=== PATIENT | female | born 1990 | race Caucasian/White ===

== ENCOUNTER 2017-02-06 11:10 | Emergency (ER) | payer MEDICAID ==
[2017-02-06 11:28] VITALS: BP 128/92
--- NOTE | 2017-02-06 11:59 | EDM.PDOC ---
ED HPI GENERAL MEDICAL PROBLEM - General Chief Complaint: Abdominal Pain Stated Complaint: STOMACH PAIN Time Seen by Provider: 02/06/17 11:45 Source of Information: Reports: Patient History Limitations: Reports: No Limitations - History of Present Illness INITIAL COMMENTS - FREE TEXT/NARRATIVE: 26-year-old female has some generalized abdominal discomfort over the past several days, passed a vaginal blood clot yesterday and went to the clinic wondering if she was having a miscarriage. The beta hCG was drawn and sent but not available yet. Today she developed a small amount of increased pain so went back into the clinic for follow-up and they sent her to the emergency room. She has no fever or chills, some nausea but no vomiting, no diarrhea. No back pain but had one episode of dysuria this morning. Onset: Unknown/Unsure Severity: Mild Associated Symptoms: Reports: Headaches, Shortness of Breath (Intermittent shortness of breath with activity). 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: Musculoskeletal History: Reports: Fracture Neurological History: Reports: Headaches, Chronic, Migraines Psychiatric History: Reports: Anxiety, Depression Dermatologic History: Reports: Eczema - Infectious Disease History Infectious Disease History: Reports: Chicken Pox - Past Surgical History Female Surgical History: Reports: Section Social & Family History - Tobacco Use Smoking Status *Q: Current Every Day Smoker Years of Tobacco use: 12 Packs/Tins Daily: 0.5 Used Tobacco, but Quit: Yes Month Tobacco Last Used: may Second Hand Smoke Exposure: No - Caffeine Use Caffeine Use: Reports: Coffee, Soda - Alcohol Use Days Per Week of Alcohol Use: 0 - Recreational Drug Use Recreational Drug Use: Yes Recreational Drug Type: Reports: Marijuana/Hashish Recreational Drug Use Frequency: Weekly ED ROS GENERAL - Review of Systems Review Of Systems: See Below Constitutional: Denies: Fever, Chills, Malaise HEENT: Reports: No Symptoms Respiratory: Reports: Shortness of Breath (With activity, intermittent and inconsistent) Cardiovascular: Denies: Chest Pain GI/Abdominal: Reports: Abdominal Pain, Nausea. Denies: Constipation, Diarrhea, Vomiting : Reports: Dysuria (One episode of dysuria this morning, no increased frequency) Skin: Reports: No Symptoms Neurological: Reports: Headache ED EXAM, GENERAL - Physical Exam Exam: See Below Exam Limited By: No Limitations General Appearance: Alert, No Apparent Distress Eye Exam: Bilateral Eye: Normal Inspection Throat/Mouth: Normal Inspection Respiratory/Chest: No Respiratory Distress, Lungs Clear Cardiovascular: Regular Rate, Rhythm GI/Abdominal: Abnormal Bowel Sounds (All sounds do seem somewhat hypoactive), Other (She reacts with some tenderness to palpation over the entire abdomen, no focal guarding or rebound is present. She can stand up without discomfort and heel strike the floor without any complaints.) Extremities: Other (Exam of the lower extremity on the left shows well-healed surgical scars, and no significant swelling around the left knee. The left ankle has no edema, deformity or abrasion. Any mild palpation around the left knee and left ankle causes her to almost scream in pain way out of proportion to the injury seen.) Course - Vital Signs Last Recorded V/S: Last Vital Signs Temp 98.1 F 02/06/17 11:26 Pulse 84 02/06/17 11:26 Resp 16 02/06/17 11:26 BP 128/92 H 02/06/17 11:26 Pulse Ox 97 02/06/17 11:26 - Orders/Labs/Meds Labs: Laboratory Tests 02/06/17 02/06/17 02/06/17 Range/Units 11:45 11:45 12:09 WBC 6.0 (4.5-11.0) K/uL RBC 4.44 (3.30-5.50) M/uL Hgb 13.4 (12.0-15.0) g/dL Hct 40.2 (36.0-48.0) % MCV 91 (80-98) fL MCH 30 (27-31) pg MCHC 33 (32-36) % Plt Count 183 (150-400) K/uL Neut % (Auto) 57 (36-66) % Lymph % (Auto) 32 (24-44) % [place] % (Auto) 10 H (2-6) % Eos % (Auto) 1 L (2-4) % Baso % (Auto) 1 (0-1) % Sodium 142 (140-148) mmol/L Potassium 3.2 L (3.6-5.2) mmol/L Chloride 107 (100-108) mmol/L Carbon Dioxide 25 (21-32) mmol/L Anion Gap 13.2 (5.0-14.0) mmol/L BUN 13 (7-18) mg/dL Creatinine 0.9 (0.6-1.0) mg/dL Est Cr Clr Drug Dosing 86.73 mL/min Estimated GFR (MDRD) > 60 (>60) Glucose 72 L (74-106) mg/dL Calcium 9.2 (8.5-10.1) mg/dL Total Bilirubin 0.5 (0.2-1.0) mg/dL AST 15 (15-37) U/L ALT 21 (12-78) U/L Alkaline Phosphatase 60 (46-116) U/L Total Protein 7.3 (6.4-8.2) g/dL Albumin 4.0 (3.4-5.0) g/dL Globulin 3.3 (2.3-3.5) g/dL Albumin/Globulin Ratio 1.2 (1.2-2.2) HCG, Quant 0 (0-6) mIU/mL Urine Color Yellow Urine Appearance Slightly cloudy Urine pH 5.0 (4.5-8.0) Ur Specific [place] 1.015 (1.008-1.030) Urine Protein Trace (NEGATIVE) mg/dL Urine Glucose (UA) Normal (NEGATIVE) mg/dL Urine Ketones Negative (NEGATIVE) mg/dL Urine Occult Blood Large (NEGATIVE) Urine Nitrite Negative (NEGATIVE) Urine Bilirubin Negative (NEGATIVE) Urine Urobilinogen Normal (NORMAL) mg/dL Ur Leukocyte Esterase Negative (NEGATIVE) Urine RBC 5-10 H (0-5) Urine WBC 0-5 (0-5) Ur Epithelial Cells Few Amorphous Sediment Not seen Urine Bacteria Few Urine Mucus Few - Re-Assessments/Exams Free Text/Narrative Re-Assessment/Exam: 02/06/17 12:09 A UA, CBC, CMP and a repeat beta hCG quantitative is drawn. No treatment pending labs as the patient looks comfortable. 02/06/17 12:28 Potassium was 3.2, mildly low but all other labs were reassuring. White count and hemoglobin were normal, kidney function excellent, urine basically clear. Her hCG level was 0. These were all discussed with the patient who again looked perfectly comfortable and displaying no symptoms. I encouraged her to rest, get fluids, and return if worsening such as fever or increased pain or vomiting. Departure - Departure Time of Disposition: 12:54 Disposition: Home, Self-Care 01 Condition: Good Clinical Impression: Abdominal pain Qualifiers: Abdominal location: generalized Qualified Code(s): R10.84 - Generalized abdominal pain - Discharge Information Instructions: Abdominal Pain, Adult, [id number] Referrals: Marie Tejeda CNM [Primary Care Provider] - Forms: ED Department Discharge Care Plan Goals: Rest, fluids, and resume normal activity as tolerated. Return anytime if worsening such as fever or increased pain.
== END 2017-02-06 12:55 | disposition home or self-care (01) ==
LOC: JP.ED 11:10
DX: R10.84 Generalized abdominal pain (principal); F17.210 Nicotine dependence, cigarettes, uncomplicated
CPT/HCPCS: 36415; 80053; 81001; 84702; 85025; 99284

== ENCOUNTER 2017-04-20 11:40 | Emergency (ER) | payer MEDICAID ==
[2017-04-20 12:01] VITALS: BP 125/71
[2017-04-20] MEDS ORDERED: Acetaminophen 325 MG Tab PO ONE (12:24)
--- NOTE | 2017-04-20 13:09 | EDM.PDOC ---
ED HPI GENERAL MEDICAL PROBLEM - General Chief Complaint: ENT Problem Stated Complaint: SORE THROAT/STREP?? 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: Musculoskeletal History: Reports: Fracture Neurological History: Reports: Headaches, Chronic, Migraines Psychiatric History: Reports: Anxiety, Depression Dermatologic History: Reports: Eczema - Infectious Disease History Infectious Disease History: Reports: Chicken Pox - Past Surgical History Female Surgical History: Reports: Section Social & Family History - Tobacco Use Smoking Status *Q: Current Every Day Smoker Years of Tobacco use: 15 Packs/Tins Daily: 0.2 Used Tobacco, but Quit: Yes Month Tobacco Last Used: may Second Hand Smoke Exposure: No - Caffeine Use Caffeine Use: Reports: Coffee, Soda - Alcohol Use Days Per Week of Alcohol Use: 0 - Recreational Drug Use Recreational Drug Use: Yes Recreational Drug Type: Reports: Marijuana/Hashish Recreational Drug Use Frequency: Weekly ED ROS ENT - Review of Systems Review Of Systems: See Below Constitutional: Reports: Fever, Chills, Malaise HEENT: Reports: Ear Pain, Rhinitis, Throat Pain. Denies: Ear Discharge Respiratory: Reports: Cough. Denies: Shortness of Breath, Sputum, Hemoptysis Cardiovascular: Reports: No Symptoms GI/Abdominal: Reports: No Symptoms : Reports: No Symptoms Musculoskeletal: Reports: No Symptoms Skin: Reports: No Symptoms Neurological: Reports: No Symptoms ED EXAM, ENT - Physical Exam Exam: See Below Exam Limited By: No Limitations General Appearance: Alert, WD/WN, No Apparent Distress Eye Exam: Bilateral Eye: Normal Inspection Ears: Normal External Exam, Normal Canal, Hearing Grossly Normal, Normal TMs, TM Obscured by Cerumen (L ear) Nose: Clear Rhinorrhea Mouth/Throat: Normal Inspection, Normal Lips, Normal Oropharynx, Normal Teeth Head: Atraumatic, Normocephalic Neck: Normal Inspection Respiratory/Chest: No Respiratory Distress, Lungs Clear, Normal Breath Sounds, No Accessory Muscle Use Cardiovascular: Regular Rate, Rhythm, No Edema Neurological: Alert, Oriented, CN II-XII Intact, Normal Cognition, No Motor/ Sensory Deficits Psychiatric: Normal Affect, Normal Mood Skin: Warm, Dry, Intact, Normal Color, No Rash Lymphatic: No Adenopathy Course - Vital Signs Last Recorded V/S: Last Vital Signs Temp 36.9 C 04/20/17 12:00 Pulse 77 04/20/17 12:00 Resp 14 04/20/17 12:00 BP 125/71 04/20/17 12:00 Pulse Ox 97 04/20/17 12:00 - Orders/Labs/Meds Meds: Medications Discontinued Medications Generic Name Dose Route Start Last Admin Trade Name Freq PRN Reason Stop Dose Admin Acetaminophen 650 mg 04/20/17 12:24 04/20/17 12:47 Tylenol PO 04/20/17 12:25 650 mg NOW ONE Administration Departure - Departure Time of Disposition: 13:06 Disposition: Home, Self-Care 01 Condition: Good Clinical Impression: Viral respiratory illness, Impacted cerumen of left ear - Discharge Information Prescriptions: Codeine/guaiFENesin [Robitussin AC] 5 - 10 ml PO Q4H PRN #1 liquid PRN Reason: Cough Referrals: Marie Tejeda CNM [Primary Care Provider] - Forms: ED Department Discharge, ED Return to Work/School Form Additional Instructions: Acetaminophen 650 mg every 4 hrs as needed. Use Robitussin AC for cough/sore throat. Drink ample fluids. Rest. Hand washing. Recheck as needed. Debrox to the left ear per package instructions.
== END 2017-04-20 13:14 | disposition home or self-care (01) ==
LOC: JP.ED 11:40
DX: B34.9 Viral infection, unspecified (principal); H61.22 Impacted cerumen, left ear; F17.210 Nicotine dependence, cigarettes, uncomplicated; Z88.5 Allergy status to narcotic agent
CPT/HCPCS: 87804; 87807; 99283; A9270

== ENCOUNTER 2019-03-14 15:28 | Emergency (ER) | payer MEDICAID ==
[2019-03-14 15:42] VITALS: BP 111/61; PULSE 73
--- NOTE | 2019-03-14 16:10 | EDM.PDOC ---
ED HPI GENERAL MEDICAL PROBLEM - General Chief Complaint: Respiratory Problem Stated Complaint: CHEST/LUNGS DISCOMFORT Time Seen by Provider: 03/14/19 15:45 Source of Information: Reports: Patient History Limitations: Reports: No Limitations - History of Present Illness INITIAL COMMENTS - FREE TEXT/NARRATIVE: 28-year-old female who is 22 weeks gestation has a history of some type of strange pulmonary infection, possibly blastomycosis over a year ago that was treated and completely resolved. She has had a cold for the past 3 or 4 days, and today she developed a deep chest discomfort with somewhat increased pain with breathing and became concerned that she may have redeveloped her old infection. She also has a history of DVTs but that has been cleared as well with ultrasound in the past year. She came in to be checked, initially was sent up to OB and everything is fine so she was sent down for further evaluation to the emergency room. She looks entirely comfortable, claims she is having some mild chest discomfort but when I went into the room for the exam she was playing on her phone and watching TV. She does not look significantly symptomatic. Onset: Gradual Duration: Day(s): (Chest pain is developed just over the past day, cold symptoms have been for 4 days) Associated Symptoms: Reports: Chest Pain, Cough, Shortness of Breath. 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: Musculoskeletal History: Reports: Fracture Neurological History: Reports: Headaches, Chronic, Migraines Psychiatric History: Reports: Anxiety, Depression Dermatologic History: Reports: Eczema - Infectious Disease History Infectious Disease History: Reports: Chicken Pox - Past Surgical History Other Respiratory Surgeries/Procedures: Blastomycosis Female Surgical History: Reports: Section Social & Family History - Family History Family Medical History: Noncontributory - Tobacco Use Smoking Status *Q: Former Smoker Used Tobacco, but Quit: Yes Month/Year Tobacco Last Used: 03/18 - Caffeine Use Caffeine Use: Reports: Coffee, Soda ED ROS GENERAL - Review of Systems Review Of Systems: See Below Constitutional: Reports: Malaise. Denies: Fever, Chills HEENT: Reports: Rhinitis. Denies: Throat Pain Respiratory: Reports: Shortness of Breath, Cough. Denies: Sputum, Hemoptysis Cardiovascular: Reports: Chest Pain GI/Abdominal: Denies: Abdominal Pain, Nausea, Vomiting Skin: Reports: No Symptoms Neurological: Reports: No Symptoms ED EXAM, GENERAL - Physical Exam Exam: See Below Exam Limited By: No Limitations General Appearance: Alert, No Apparent Distress Throat/Mouth: Normal Inspection Head: Atraumatic Respiratory/Chest: No Respiratory Distress, Lungs Clear Cardiovascular: Regular Rate, Rhythm. No: Tachycardia GI/Abdominal: Soft, Other (Uterine fundus is above the umbilicus, she has some tenderness to palpation on both sides of the uterus typical of ligament pain) Extremities: Normal Inspection. No: Pedal Edema Neurological: Alert, Oriented Course - Vital Signs Last Recorded V/S: Last Vital Signs Temp 98.0 F 03/14/19 15:50 Pulse 73 03/14/19 15:50 Resp 16 03/14/19 15:50 BP 111/61 03/14/19 15:50 Pulse Ox 99 03/14/19 15:50 - Re-Assessments/Exams Free Text/Narrative Re-Assessment/Exam: 03/14/19 16:09 I see no reason to investigate this further with x-ray with her 22-week with completely normal vitals, O2 saturation 99%, pulse and blood pressure normal and lung sounds completely clear. I asked her to recheck with her primary provider in the next several days, or return to the emergency room if she becomes more short of breath or develops a fever. Departure - Departure Time of Disposition: 16:38 Disposition: Home, Self-Care 01 Clinical Impression: Atypical chest pain - Discharge Information Instructions: Nonspecific Chest Pain Referrals: PCP,None [Primary Care Provider] - Forms: ED Department Discharge Care Plan Goals: Recheck with your primary provider sometime this week, or return to the emergency room if worsening such as increasing shortness of breath, worsening pain, or fever. Sepsis Event Note - Evaluation Sepsis Screening Result: No Definite Risk - Focused Exam Vital Signs: Vital Signs Temp Pulse Resp BP Pulse Ox 03/14/19 15:50 98.0 F 73 16 111/61 99 03/14/19 15:40 98.0 F 73 16 111/61 99 Date Exam was Performed: 03/14/19 Time Exam was Performed: 17:00
== END 2019-03-14 16:38 | disposition home or self-care (01) ==
LOC: JP.ED 15:28
DX: O99.89 Other specified diseases and conditions complicating pregnancy, childbirth and the puerperium (principal); R07.89 Other chest pain; Z3A.22 22 weeks gestation of pregnancy; Z88.5 Allergy status to narcotic agent; Z87.891 Personal history of nicotine dependence
CPT/HCPCS: 99284

== ENCOUNTER 2019-06-23 05:46 | Inpatient (IN) | payer MEDICAID ==
[2019-06-23] MEDS ORDERED: Lactated Ringers 1,000 ML IV SCH (06:00)
[2019-06-23] MEDS ORDERED: cefOXitin 1 GM Vial ONE (06:43)
[2019-06-23] MEDS ORDERED: Oxytocin 10 Units/1 ML SDV ONE ×3 (06:43→07:39)
[2019-06-23] MEDS ORDERED: cefOXitin 2 GM Vial ONE ×2 (07:38→07:39)
[2019-06-23] MEDS ORDERED: Lactated Ringers 1,000 ML ONE (07:39)
[2019-06-23] MEDS ORDERED: fentaNYL 100 MCG/2 ML SDV ONE (08:26)
[2019-06-23] MEDS ORDERED: hydrOXYzine HCL 100 MG/2 ML SDV IM ONE (09:09)
[2019-06-23] MEDS ORDERED: hydrOXYzine HCL 100 MG/2 ML SDV IM PRN (09:13)
[2019-06-23] MEDS ORDERED: Ondansetron 4 MG/2 ML SDV IVPUSH PRN (09:14)
[2019-06-23] MEDS ORDERED: Albuterol/Ipratropium 3.0-0.5 MG/3 ML Neb Soln INH PRN (09:14)
[2019-06-23] MEDS ORDERED: Dextrose 5% in Water 1,000 ML IV SCH (09:15)
[2019-06-23] MEDS ORDERED: Naloxone 0.4 MG/ML SDV IV PRN (09:18)
[2019-06-23] MEDS: HYDROmorphone/Normal Saline 15 MG/30 ML PCA IV PRN (09:23)
[2019-06-23] MEDS: Ibuprofen 400 MG Tab PO SCH ×3 (10:39→22:30)
[2019-06-23] MEDS: Acetaminophen 500 MG Tab PO SCH ×3 (10:39→21:21)
[2019-06-23] MEDS: Dextrose 5%-Lactated Ringers 1,000 ML IV SCH ×3 (11:35→23:35)
[2019-06-23] MEDS: cefOXitin 2 GM in Sodium Chloride 0.9% 50 ML IV SCH ×2 (14:09→20:23)
[2019-06-23] MEDS: Enoxaparin 40 MG/0.4 ML Syringe SUBCUT SCH (15:50)
[2019-06-24] MEDS: Acetaminophen 500 MG Tab PO SCH ×4 (03:31→21:42)
[2019-06-24] MEDS: cefOXitin 2 GM in Sodium Chloride 0.9% 50 ML IV SCH ×4 (03:31→20:14)
[2019-06-24] MEDS: Ibuprofen 400 MG Tab PO SCH ×4 (03:32→21:43)
[2019-06-24] MEDS: Enoxaparin 40 MG/0.4 ML Syringe SUBCUT SCH ×2 (03:32→15:30)
[2019-06-24] MEDS ORDERED: Lanolin 100% Cream 40 GM Tube TOP PRN (05:05)
[2019-06-24] MEDS: Dextrose 5%-Lactated Ringers 1,000 ML IV SCH (05:21)
[2019-06-24] MEDS ORDERED: Iopamidol 755 Mg/ML 100 ML Bottle IV STA (06:52)
[2019-06-24] MEDS ORDERED: Sodium Chloride 0.9% 100 ML IV STA (06:52)
[2019-06-24] MEDS ORDERED: Dextrose 5%-Lactated Ringers 1,000 ML IV SCH (07:11)
--- NOTE | 2019-06-24 08:00 | CRLCT ---
INDICATION: Status post . Dyspnea and chest pain COMPARISON: None TECHNIQUE: : CT examination of the chest was performed with the uneventful intravenous administration of 100 cc of Isovue 370 while thin axial sections were obtained from above the apices of the lungs to the lung bases. Please note that all CT scans at this facility use dose modulation, iterative reconstruction, and/or weight-based dosing when appropriate to reduce radiation dose to as low as reasonably achievable. FINDINGS: : HEART and MEDIASTINUM: The heart size is normal. There is no mediastinal or hilar adenopathy or mass. There is no pericardial effusion. PULMONARY ARTERIAL CIRCULATION: There is no visible intraluminal filling defect to suggest pulmonary embolus. LUNGS: Aside from trace basilar atelectasis, the lungs show nose notable findings. No significant pleural fluid. No pneumothorax PLEURAL SPACES: As above VISUALIZED UPPER ABDOMEN: The limited visualized upper abdominal structures appear normal. There is an incidental small pneumoperitoneum which is consistent with a recent OSSEOUS STRUCTURES: Age-appropriate appearance. No acute fracture or destructive process. TUBES and LINES: None. IMPRESSION: 1. There is no finding of pulmonary embolus. 2. Trace basilar atelectasis. Small pneumoperitoneum consistent with recent Please note that all CT scans at this facility use dose modulation, iterative reconstruction, and/or weight-based dosing when appropriate to reduce radiation dose to as low as reasonably achievable. Dictated by Emile Hartman MD @ Jun 24 2019 7:53AM Signed by Dr. Emile Hartman @ Jun 24 2019 7:59AM
[2019-06-24] MEDS: Fluticasone Propionate Nasal Spray 16 GM Bottle NASBOTH SCH (08:01)
--- NOTE | 2019-06-24 08:29 | PN ---
DATE OF SERVICE: 06/24/2019 SUBJECTIVE: Silvia is postoperative day #1 following a . She had episode during the night where she reported at 02:30 reporting shortness of breath, pain in her upper right shoulder. Vital signs were normal. Lungs were clear. She used her IS, ambulated in the sanches. Shortness of breath did improve with using her STOREROOM SUPERVISOR. She also reported, after questioning, she had some left lower leg pain which she states was where she had her blood clot. She is resting comfortably in bed. Vital signs were stable. Pulse rate remained 86 to 73. Blood pressure was normal. Currently, she states that she takes a deep breath. She feels some pressure in her left upper chest. Resting comfortably right now, holding baby. Pain is controlled with the STOREROOM SUPERVISOR. REVIEW OF SYSTEMS: Remainder of review of systems negative for any pertinent positives and negatives. OBJECTIVE: GENERAL: Silvia Mercedes is a pleasant 29-year-old female. VITAL SIGNS: TPR at 02:01, 98.3; 73; 16; blood pressure 110/70. HEENT: Negative. NECK: Supple. HEART: Regular rate and rhythm. LUNGS: Clear. ABDOMEN: Negative. Abdominal binder is on. EXTREMITIES: Without peripheral edema. ASSESSMENT: Repeat section and repair of incisional hernia. PLAN: 1. Stat CT angiogram chest and lungs to rule out pulmonary embolism. 2. Stat D-dimer. 3. Stat BMP. 4. Discontinue Rose catheter after CT. 5. Decrease IV to 80 mL per hour. 6. We will evaluate p.r.n. or in a.m. Cyndie Waters PA-C /[id number]
[2019-06-24] MEDS: HYDROmorphone/Normal Saline 15 MG/30 ML PCA IV PRN (09:02)
[2019-06-24] MEDS: HYDROmorphone 2 MG Tab PO PRN ×3 (10:39→20:14)
[2019-06-24] MEDS ORDERED: Docusate Sodium 100 MG Cap PO PRN (21:47)
[2019-06-25] MEDS: cefOXitin 2 GM in Sodium Chloride 0.9% 50 ML IV SCH (02:53)
[2019-06-25] MEDS: Ibuprofen 400 MG Tab PO SCH ×2 (03:02→09:36)
[2019-06-25] MEDS: Enoxaparin 40 MG/0.4 ML Syringe SUBCUT SCH (03:03)
[2019-06-25] MEDS: HYDROmorphone 2 MG Tab PO PRN (03:11)
[2019-06-25] MEDS: Acetaminophen 500 MG Tab PO SCH ×2 (03:11→09:37)
[2019-06-25] MEDS: Fluticasone Propionate Nasal Spray 16 GM Bottle NASBOTH SCH (08:33)
[2019-06-25] MEDS ORDERED: Magnesium Hydroxide 400 MG/5 ML Susp 30 ML Cup PO ONE (09:00)
[2019-06-25] MEDS ORDERED: Bisacodyl 5 MG Tab PO SCH (09:00)
--- NOTE | 2019-06-25 10:09 | PN ---
DATE OF SERVICE: 06/25/2019 SUBJECTIVE: Silvia is postop day 2 following a section. She has temp max of 99. CT angiogram of lung to rule out pulmonary embolism yesterday was negative. Reported that she did not have a bowel movement, but charting noted that she had 2 bowel movements yesterday, a total of 750 urine out plus 4 additional voids. Oral intake was 3080. Pain is controlled with Dilaudid, ibuprofen, and Tylenol. IV is saline locked. REVIEW OF SYSTEMS: Remainder of review of systems negative for any pertinent positives or negatives. OBJECTIVE: GENERAL: Silvia Mercedes is a 29-year-old female. VITAL SIGNS: Height 5 feet 5 inches, weight is 184 pounds. TPR is 97.5, 85, 16, blood pressure 126/59. HEENT: Negative. NECK: Supple. HEART: Regular rate and rhythm. LUNGS: Clear. ABDOMEN: Abdominal binder is on. EXTREMITIES: Without peripheral edema. ASSESSMENT: section with incarcerated incisional hernia. Date of surgery: 06/23/2019. Surgeon: Emile Winters MD. PLAN: 1. Milk of magnesia 30 mL 1 time. 2. Dulcolax 10 mg b.i.d. p.o. until the patient has a bowel movement. 3. Check with the patient in regard to if she has had a bowel movement or not, then bowel stimulation will be discontinued. 4. Discontinue IV antibiotic. Continue good pulmonary toilet. 5. We will evaluate p.r.n. or in a.m. Cyndie Waters PA-C /[id number]
[2019-06-25 11:03] VITALS: BP 118/63; PULSE 89
--- NOTE | 2019-06-25 22:09 | DISCH ---
ADMISSION DIAGNOSIS: Term , 3, para 3. DISCHARGE DIAGNOSIS: Repeat and repair of incisional hernia. DATE OF SURGERY: 06/23/2019. HISTORY: Silvia Mercedes is a 29-year-old female, who is scheduled for a repeat section. After preoperative evaluation and discussion of possible risks and possible complications, she wished to proceed with surgical procedure. HOSPITAL COURSE: Silvia had her surgery on 06/23/2019. She had no operative complications. On postoperative day #1, vital signs were stable. Activity was good. Pain was controlled. She was started on a full liquid diet and later advanced to regular diet as well as oral pain medication. She did in early a.m. 06/24/2019 at 02:30 reported shortness of breath, pain in her upper shoulder. CT angiogram of lung was negative for any pulmonary embolism. On postoperative day #2, the patient requested to be discharged. Pain was controlled. Activity was good. Vital signs stable, and she had no other questions or concerns. OBJECTIVE: GENERAL: Silvia Mercedse is a 29-year-old female. VITAL SIGNS: Height is 5 feet 5 inches, weight is 184 pounds. TPR at 07:15, 98, 173, 18, blood pressure 119/56. HEENT: Negative. NECK: Supple. HEART: Regular rate and rhythm. LUNGS: Clear. ABDOMEN: Incision looks good. EXTREMITIES: Without peripheral edema. DISPOSITION: Discharged to home. CONDITION: Stable and improving. FOLLOWUP: Followup appointment with Marie Tejeda CNM global transportation manager, per her recommendation and follow up with Cyndie Waters PA-C, for followup on section on 07/02/2019 at 9 a.m. HOME MEDICATIONS: 1. Acetaminophen 1000 mg every 6 hours. 2. Ibuprofen 600 mg every 6 hours p.r.n. pain. 3. Ventolin inhaler 2 puffs every 6 hours p.r.n. wheezing. 4. Drysol one applicator topical at bedtime. 5. Colace 100 mg oral twice daily. 6. Flonase 2 sprays inhalation daily. 7. She is to continue with lanolin cream. DIET: Usual diet as tolerated. Drink 8 to 10 glasses of water a day. ACTIVITY: No lifting greater than 10 pounds for 4 weeks, but can lift the baby in car seat. Other activity: Walk at least 6 times daily inside your home. Driving: Do not drive for 1 week. Shower/bathing: May shower. No tub bathing or swimming for 6 to 8 weeks until incision is healed. DISCHARGE INSTRUCTIONS: Notify provider if any fever, increased pain, swelling, redness, drainage. Keep site clean and dry. Special instruction is use incentive spirometer 10 times every hour while awake.
--- NOTE | 2019-06-28 11:45 | OR ---
DATE OF PROCEDURE: 06/23/2019 SURGEON: Emile Winters MD PREOPERATIVE DIAGNOSIS: Term with history of previous section. POSTOPERATIVE DIAGNOSES: 1. Term with history of previous section. 2. Incarcerated incisional hernia. OPERATIVE PROCEDURES: 1. Repeat section (94452). 2. Repair of incarcerated incisional hernia (64932). ANESTHESIA: Spinal. PATIENT CARE TECHNICIAN INSTRUCTOR: Payal Otto CNM. INDICATIONS FOR PROCEDURE: This is a 29-year-old female presenting with a scheduled repeat section. Plan is to proceed with a section with spinal anesthetic. Potential risks of the procedure including bleeding, infection, injury to underlying viscera or baby were all reviewed, and the patient wishes to proceed. DETAILS OF PROCEDURE: The patient was taken to the operating room, and after spinal anesthetic was placed, was positioned in the supine position with a roll underneath the right hip and Rose catheter was inserted. After the abdomen was prepped and draped, the previous Pfannenstiel incision was reused and carried down through the skin and subcutaneous tissue, and through the rectus sheath. Subrectus sheath flaps were raised superiorly and inferiorly. It was notable that, upon raising the rectus sheath flap superiorly, the patient had a hernia between the segments of the rectus muscle and midline, which contained some incarcerated omentum within it. As this was dissected free and returning to the abdomen, the remainder of the midline opening was completed. The peritoneal reflection of the bladder on the uterus was then divided and the bladder dissected downward. A transverse uterine incision was then made and a viable male was delivered through vertex presentation. Cord was clamped and cut, and routine care was given off the field per Payal Otto CNM, and the patient was given IV and intrauterine oxytocin and IV cefoxitin. The placenta delivered satisfactorily. There appeared to be a fair bit of placental calcifications. There was one area in the lower posterior uterine wall that had some persistent bleeding after the placenta had been removed. There was no obvious placenta accreta or increta at that level, but this was controlled with [id number] sutures of 2- 0 Vicryl stitch. The uterus was then closed with 2 layers of 2-0 Vicryl stitch, as was the peritoneal reflection of the bladder on the uterus. Uterus was then placed back into peritoneal cavity, and at that point, the segments of the rectus muscle were approximated in the midline with #2 Vicryl stitch which effectively controlled the incisional hernia. Over this, the anterior rectus sheath was similarly closed with #2 Vicryl stitch, subcutaneous tissue with some 2-0 Vicryl stitch, and the skin with 4-0 Vicryl subcuticular stitch. Surgical glue was then applied, and the patient was taken to the recovery room in satisfactory condition. There were no evident complications. Emile Winters MD /[id number]
== END 2019-06-25 13:00 | disposition home or self-care (01) | DRG 788 ==
LOC: JP.SDS 05:46 → JP.MS 08:05
PROVIDERS: ADMIT Advanced Practice Midwife; ATTEND Surgery
PROC: 10D00Z1 Extraction of Products of Conception, Low, Open Approach (ICD-10-PCS; principal; 2019-06-23)
DX: O34.219 Maternal care for unspecified type scar from previous cesarean delivery (principal); Z3A.37 37 weeks gestation of pregnancy; Z37.0 Single live birth
CPT/HCPCS: 36415; 59409; 71275; 80305-QW; 82565; 85027; 85379; 86850; 86900; 86901; 88302; 88307; 94762; A9270-GY; J0694; J1170; J1650; J2590; J3010; J3410; J7050; J7120; J7121; Q9967

== ENCOUNTER 2019-06-27 10:49 | Emergency (ER) | payer MEDICAID ==
[2019-06-27 11:06] VITALS: BP 121/38; PULSE 66
--- NOTE | 2019-06-27 11:07 | EDM.PDOC ---
ED HPI GENERAL MEDICAL PROBLEM - General Chief Complaint: Lower Extremity Injury/Pain Stated Complaint: POSSIBLE BLOOD CLOT Time Seen by Provider: 06/27/19 11:15 Source of Information: Reports: Patient History Limitations: Reports: No Limitations - History of Present Illness INITIAL COMMENTS - FREE TEXT/NARRATIVE: 29-year-old female with a history of DVT presents with right leg swelling and discomfort 5 days after a . She has edema and swelling of both lower extremities but the right is bothering her more with discomfort in the ankle and calf. She called the OB department and they recommended she go in for an ultrasound. No shortness of breath, in fact she had a CT of the chest 3 days ago which was negative. Onset: Gradual Duration: Day(s): (3 to 4 days) Location: Reports: Lower Extremity, Right Associated Symptoms: Reports: Other (Mild right lower quadrant abdominal pain near the lateral aspect of the incision) Right Lower Leg Pain Score (Numeric/FACES): 7 - Related Data Allergies Allergy/AdvReac Type Severity Reaction Status Date / Time morphine Allergy Itching Verified 06/27/19 11:08 medroxyprogesterone AdvReac blood Verified 06/27/19 11:08 [From Depo-Provera] clots in legs Home Meds: Home Meds Vit No.129/Iron/FA [ One Daily Tablet] 1 tab PO DAILY 03/14/19 [History] Albuterol [Ventolin HFA] 2 puff INH Q6HR PRN 06/21/19 [History] Aluminum Chloride [Drysol] 1 applic TOP BEDTIME 06/21/19 [History] Fluticasone Propionate [Flonase] 2 spray INH DAILY 06/21/19 [History] hydrOXYzine HCL [hydrOXYzine] 25 mg PO BID MDD sleep 06/21/19 [History] Ibuprofen 600 mg PO Q6HR PRN #40 tablet 06/25/19 [Rx] Lanolin [Lansinoh HPA] 40 gm TOP ASDIRECTED PRN tube 06/25/19 [Rx] Acetaminophen [Tylenol Extra Strength] 1,000 mg PO Q6H PRN 06/27/19 [History] Past Medical History - Past Health History Medical/Surgical History: Denies Medical/Surgical History HEENT History: Reports: Allergic Rhinitis, Impaired Vision, Sinusitis Cardiovascular History: Reports: Blood Clots/VTE/DVT Respiratory History: Reports: Pneumothorax, Other (See Below) Other Respiratory History: pneumothorax due to infection Gastrointestinal History: Reports: GERD Genitourinary History: Reports: UTI, Recurrent [employer] 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: Musculoskeletal History: Reports: Fracture Neurological History: Reports: Headaches, Chronic, Migraines Psychiatric History: Reports: ADHD, Anxiety, Depression Endocrine/Metabolic History: Reports: Obesity/BMI 30+ Dermatologic History: Reports: Eczema - Infectious Disease History Infectious Disease History: Reports: Chicken Pox - Past Surgical History Cardiovascular Surgical History: Reports: None Other Respiratory Surgeries/Procedures: Blastomycosis GI Surgical History: Reports: None Female Surgical History: Reports: Section Endocrine Surgical History: Reports: None Neurological Surgical History: Reports: None Musculoskeletal Surgical History: Reports: None Dermatological Surgical History: Reports: None Social & Family History - Family History Family Medical History: Noncontributory - Caffeine Use Caffeine Use: Reports: Coffee Review of Systems - Review of Systems Review Of Systems: See Below Constitutional: Denies: Fever Respiratory: Denies: Shortness of Breath, Cough Cardiovascular: Denies: Chest Pain GI/Abdominal: Reports: Abdominal Pain Skin: Reports: Other (No problems with her surgical incision). Denies: Bruising Neurological: Reports: No Symptoms. Denies: Paresthesia ED EXAM, GENERAL - Physical Exam Exam: See Below Exam Limited By: No Limitations General Appearance: Alert, No Apparent Distress Eye Exam: Bilateral Eye: Normal Inspection Head: Atraumatic Respiratory/Chest: No Respiratory Distress, Lungs Clear Cardiovascular: Regular Rate, Rhythm GI/Abdominal: Soft, Other (Surgical incision looks excellent) Extremities: Other (She does have 1-2+ pitting edema of the right lower extremity compared to 1+ on the left. Some discomfort with palpation of the popliteal area of the leg as well as the calf.) Course - Vital Signs Last Recorded V/S: Last Vital Signs Temp 95.5 F L 06/27/19 11:07 Pulse 66 06/27/19 11:07 Resp 16 06/27/19 11:07 BP 121/38 L 06/27/19 11:07 Pulse Ox 98 06/27/19 11:07 - Orders/Labs/Meds Orders: Active Orders 24 hr Category Date Time Status Duplex Lwr Ext Veins Ltd [US] Stat Exams 06/27/19 11:23 Taken VL Duplex Lwr Ext Veins Ltd Rt [US] Stat Exams 06/27/19 11:56 Ordered - Re-Assessments/Exams Free Text/Narrative Re-Assessment/Exam: 06/27/19 11:53 This is likely postsurgical edema, however an ultrasound of the leg is needed because of the patient's recent surgery and her history. This was ordered. 06/27/19 12:17 Ultrasound was negative, patient was reassured and discharged. Departure - Departure Time of Disposition: 12:20 Disposition: Home, Self-Care 01 Clinical Impression: Leg edema, right - Discharge Information Instructions: Edema Referrals: Payal Otto CNM [Primary Care Provider] - Forms: ED Department Discharge Care Plan Goals: Avoid extra salt intake, stay active and follow-up as scheduled. Sepsis Event Note - Focused Exam Vital Signs: Vital Signs Temp Pulse Resp BP Pulse Ox 06/27/19 11:07 95.5 F L 66 16 121/38 L 98 06/27/19 11:04 95.5 F L 66 16 121/38 L 98 Date Exam was Performed: 06/27/19 Time Exam was Performed: 14:10 - My Orders Last 24 Hours: My Active Orders 06/27/19 11:23 VL Duplex Lwr Ext Veins Ltd Lt [US] Stat 06/27/19 11:56 VL Duplex Lwr Ext Veins Ltd Rt [US] Stat - Assessment/Plan Last 24 Hours: My Active Orders 06/27/19 11:23 VL Duplex Lwr Ext Veins Ltd Lt [US] Stat 06/27/19 11:56 VL Duplex Lwr Ext Veins Ltd Rt [US] Stat
--- NOTE | 2019-06-28 10:23 | US ---
VL Duplex Lwr Ext Veins Ltd Lt INDICATION: swelling pain hx blood clots FINDINGS: Ultrasound examination of the lower extremity using Doppler and compressive technique demonstrates that the common femoral, femoral, and popliteal veins are patent, and negative for thrombus. The calf veins were segmentally visualized and are negative where seen. IMPRESSION: Negative for right lower extremity deep venous thrombosis.
== END 2019-06-27 12:22 | disposition home or self-care (01) ==
LOC: JP.ED 10:49
DX: R60.0 Localized edema (principal); E66.9 Obesity, unspecified; Z68.30 Body mass index [BMI] 30.0-30.9, adult; Z88.5 Allergy status to narcotic agent
CPT/HCPCS: 93971-26; 93971-26-LT; 93971-LT; 93971-RT; 99283-25

== ENCOUNTER 2019-08-26 12:43 | Emergency (ER) | payer MEDICAID ==
[2019-08-26 13:02] VITALS: BP 129/74; PULSE 76
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
== END 2019-08-26 13:50 | disposition home or self-care (01) ==
LOC: JP.ED 12:43
DX: S16.1XXA Strain of muscle, fascia and tendon at neck level, initial encounter (principal); S00.03XA Contusion of scalp, initial encounter; S20.211A Contusion of right front wall of thorax, initial encounter; S50.12XA Contusion of left forearm, initial encounter; F17.210 Nicotine dependence, cigarettes, uncomplicated; E66.9 Obesity, unspecified; Z88.5 Allergy status to narcotic agent; Z88.8 Allergy status to other drugs, medicaments and biological substances; Z68.26 Body mass index [BMI] 26.0-26.9, adult; Y04.8XXA Assault by other bodily force, initial encounter
CPT/HCPCS: 99283

== ENCOUNTER 2020-10-05 20:46 | Emergency (ER) | payer OTHER, MEDICAID ==
[2020-10-05] MEDS ORDERED: Ketorolac 30 MG/ML SDV IVPUSH ONE (21:59)
[2020-10-05] MEDS ORDERED: Methocarbamol 500 MG Tab PO STA (21:59)
[2020-10-05] MEDS ORDERED: Sodium Chloride 0.9% 10 ML Syringe FLUSH PRN (21:59)
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
[2020-10-05] MEDS ORDERED: Sodium Chloride 0.9% 80 ML IV SCH (22:15)
[2020-10-05] MEDS ORDERED: Iopamidol 612 MG/ML 100 ML Bottle IV SCH (22:15)
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
[2020-10-06 01:27] VITALS: BP 116/82; PULSE 64
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
== END 2020-10-06 02:35 | disposition home or self-care (01) ==
LOC: JP.ED 20:46
DX: S16.1XXA Strain of muscle, fascia and tendon at neck level, initial encounter (principal); S20.211A Contusion of right front wall of thorax, initial encounter; S80.01XA Contusion of right knee, initial encounter; S70.312A Abrasion, left thigh, initial encounter; M62.830 Muscle spasm of back; R10.11 Right upper quadrant pain; E66.9 Obesity, unspecified; Z68.25 Body mass index [BMI] 25.0-25.9, adult; Z72.0 Tobacco use; Z88.5 Allergy status to narcotic agent; Z88.8 Allergy status to other drugs, medicaments and biological substances; Z79.899 Other long term (current) drug therapy; V59.9XXA Occupant (driver) (passenger) of pick-up truck or van injured in unspecified traffic accident, initial encounter; Y92.410 Unspecified street and highway as the place of occurrence of the external cause
CPT/HCPCS: 70450; 71260; 72125; 73562; 74177; 96374; 99284; A9270; J1885; Q9967

== ENCOUNTER 2020-10-28 00:07 | Emergency (ER) | payer MEDICAID ==
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
--- NOTE | 2020-10-28 02:24 | CRLCT ---
For Patients: As a result of the Century Cures Act, medical imaging exams and procedure reports are released immediately into your electronic medical record. You may view this report before your referring provider. If you have questions, please contact your health care provider. INDICATION: Left sided numbness and weakness, vision changes TECHNIQUE: CT Head without i.v. contrast. Coronal and sagittal reformats were obtained. COMPARISON: 10/05/2020 FINDINGS: CSF space: The ventricles are normal for age. Brain: No evidence of mass, acute infarction or hemorrhage is seen. No mass-effect or midline shift is seen. The brain parenchyma is otherwise normal in appearance with preservation of the patricio-white matter junction. Calvarium: The visualized paranasal sinuses are well aerated. The mastoid air cells are clear. The visualized orbits are grossly unremarkable. The calvarium is unremarkable in appearance with no fractures identified. IMPRESSION: 1. No evidence of acute infarction, intracranial hemorrhage, or mass-effect seen. The findings were discussed with Dr. Mina at 2:22 AM. Please note that all CT scans at this facility use dose modulation, iterative reconstruction, and/or weight-based dosing when appropriate to reduce radiation dose to as low as reasonably achievable. Dictated by: Chris Reza MD @ 10/28/2020 02:22:28 (Electronically Signed)
[2020-10-28] MEDS ORDERED: Dexamethasone 4 MG/ML SDV IVPUSH ONE (02:41)
[2020-10-28] MEDS ORDERED: Ketorolac 30 MG/ML SDV IVPUSH ONE (02:41)
[2020-10-28] MEDS ORDERED: diphenhydrAMINE 50 MG/ML SDV IVPUSH ONE (02:41)
[2020-10-28] MEDS ORDERED: Sodium Chloride 0.9% 10 ML Syringe FLUSH PRN (02:41)
[2020-10-28] MEDS ORDERED: Prochlorperazine 10 MG/2 ML SDV IVPUSH ONE (02:41)
[2020-10-28 04:11] VITALS: BP 109/58; PULSE 64
== END 2020-10-28 04:11 | disposition home or self-care (01) ==
LOC: JP.ED 00:07
DX: R51.9 Headache, unspecified (principal); H53.8 Other visual disturbances; R20.0 Anesthesia of skin; R53.1 Weakness; J45.909 Unspecified asthma, uncomplicated; E66.9 Obesity, unspecified; Z68.26 Body mass index [BMI] 26.0-26.9, adult; Z72.0 Tobacco use; Z88.5 Allergy status to narcotic agent; Z88.8 Allergy status to other drugs, medicaments and biological substances; Z79.899 Other long term (current) drug therapy; Z20.822 Contact with and (suspected) exposure to COVID-19
CPT/HCPCS: 36415; 70450; 80053; 80307; 84443; 85025; 86140; 87635; 96374; 96375; 99284; J0780; J1100; J1200; J1885; U0002

== ENCOUNTER 2024-06-24 07:20 | Day surgery (SDC) | payer MEDICAID ==
[2024-06-24] MEDS: Lactated Ringers 1,000 ML IV SCH (07:51)
[2024-06-24] MEDS ORDERED: Midazolam 1 MG/ML 2 ML SDV ONE (08:23)
[2024-06-24] MEDS ORDERED: fentaNYL 100 MCG/2 ML SDV ONE (08:23)
[2024-06-24] MEDS ORDERED: Propofol 200 MG/20 ML SDV ONE (08:23)
[2024-06-24 11:01] VITALS: BP 124/89; PULSE 66
== END 2024-06-24 11:19 | disposition home or self-care (01) ==
LOC: JP.SDS 07:20
PROVIDERS: ATTEND Surgery
DX: K21.00 Gastro-esophageal reflux disease with esophagitis, without bleeding (principal); R13.10 Dysphagia, unspecified; K22.70 Barrett's esophagus without dysplasia; K22.89 Other specified disease of esophagus
CPT/HCPCS: 43239; 43249; 81025; 88305; C1726; J2250; J2704; J3010; J7120; 00731-QZ

== ENCOUNTER 2024-11-22 06:21 | Day surgery (SDC) | payer MEDICAID ==
[2024-11-22 07:00] LABS: PLATELET COUNT,PLT 285.0 K/uL (130-375); RED BLOOD CELL COUNT 4.19 M/uL (3.77-5.24); WHITE BLOOD CELL COUNT,WBC 9.0 K/uL (3.2-11.0)
[2024-11-22] MEDS: Lactated Ringers 1,000 ML IV SCH (07:09)
[2024-11-22] MEDS ORDERED: fentaNYL 250 MCG/5 ML SDV ONE (07:15)
[2024-11-22] MEDS ORDERED: Glycopyrrolate 0.2 MG/ML 5 ML MDV ONE (07:16)
[2024-11-22] MEDS ORDERED: Dexamethasone 4 MG/ML SDV ONE (07:16)
[2024-11-22] MEDS ORDERED: Propofol 200 MG/20 ML SDV ONE (07:16)
[2024-11-22] MEDS ORDERED: Ondansetron 4 MG/2 ML SDV ONE (07:16)
[2024-11-22 07:20] LABS: A/G RATIO 1.1 (1.2-2.2); ALANINE AMINOTRANSFERASE,ALT 20 U/L (12-78); ASPARTATE AMNIOTRANSFERASE,AST 13 U/L (15-37); BILIRUBIN TOTAL 0.4 mg/dL (0.2-1.0); BLOOD UREA NITROGEN,BUN 13 mg/dL (7-18); CARBON DIOXIDE,CO2 25 mmol/L (21-32); CHLORIDE,CL 104 mmol/L (100-108); CREATININE 0.8 mg/dL (0.6-1.0); EST CRCL DRUG DOSING (CG) 92.68 mL/min; ESTIMATED GFR 100 mL/min (>60); GLUCOSE RANDOM 91 mg/dL (74-106); POTASSIUM,K 3.9 mmol/L (3.6-5.2); PROTEIN TOTAL,TP 7.4 g/dL (6.4-8.2); SODIUM,NA 139 mmol/L (140-148)
[2024-11-22] MEDS: Indocyanine Green 25 MG SDV IV ONE (07:34)
[2024-11-22] MEDS: metroNIDAZOLE/Normal Saline 500 MG in Premix Bag 1 BAG IV ONE (07:39)
[2024-11-22] MEDS: Lidocaine 1% with EPINEPHrine 1:100,000 50 ML MDV ONE (08:40)
[2024-11-22] MEDS ORDERED: fentaNYL 100 MCG/2 ML SDV ONE (08:53)
[2024-11-22] MEDS: Ondansetron 4 MG/2 ML SDV IVPUSH ONE (09:18)
[2024-11-22] MEDS ORDERED: diphenhydrAMINE 50 MG/ML SDV IVPUSH PRN (09:41)
[2024-11-22] MEDS: Ketorolac 30 MG/ML SDV IVPUSH ONE (10:01)
[2024-11-22] MEDS ORDERED: Acetaminophen/HYDROcodone 325-5 MG Tab PO PRN (10:41)
[2024-11-22 11:24] VITALS: PULSE 75
[2024-11-22 11:33] VITALS: BP 109/59
== END 2024-11-22 11:50 | disposition home or self-care (01) ==
LOC: JP.SDS 06:21
PROVIDERS: ATTEND Surgery
DX: K81.1 Chronic cholecystitis (principal); F17.210 Nicotine dependence, cigarettes, uncomplicated
CPT/HCPCS: 00790; 36415; 47563; 80053; 84703; 85027; 88304; J0169; J0665; J0690; J1100; J1836; J1885; J2405; J2704; J2765; J2795; J3010; J7120; J1596; J2710; J3490